=== PATIENT | male | born 1980 | race Caucasian/White ===

== ENCOUNTER → 2016-12-16 | Outpatient (CLI) | payer BC ==
[~2016-12-16] MED LIST: AMOXICILLIN 50500 MG PO; ANTIVERT 25MG25 MG PO; ATIVAN 0.50.5 MG/TAB PO; BUSPAR10 MG PO; CILOXAN .3% EY2.5 ML OD; FLONASE NASAL S16 GM NS; KLONOPIN 0.5MG0.5 MG PO; LEVAQUIN 5500 MG/TA1 PO; NORCO 325 MG-7.1 TAB PO; PAXIL40 MG PO; PREDNISONE20 MG PO; PRINZIDE 12.5 M1 TA1 PO; VENTOLIN0.09 MG IH; ZESTRIL 20MG TA20 MG PO
== END ==
LOC: COL.RAD 07:23
DX: R16.0 Hepatomegaly, not elsewhere classified (principal); K76.0 Fatty (change of) liver, not elsewhere classified; Z90.49 Acquired absence of other specified parts of digestive tract

== ENCOUNTER → 2019-05-13 | Outpatient (CLI) | payer BC | LOC: COL.RAD 13:26 | DX: N50.811 Right testicular pain (principal) ==

== ENCOUNTER 2021-06-21 13:44 | Outpatient (CLI) | payer BC ==
[~2021-06-21] VITALS: Ht 170.2 cm; Wt 159.0 kg
[2021-06-21 13:40] VITALS: BP 124/69; PULSE 72; TEMP 98.8
[~2021-06-21 13:44] MED LIST changes: +PAXIL 20MG20 MG PO; -PAXIL40 MG PO
[2021-06-21 14:12] VITALS: BP 124/68; PULSE 68
[2021-06-21 14:41] VITALS: BP 122/60; PULSE 73
[2021-06-21 14:55] VITALS: BP 121/69; PULSE 68
[2021-06-21 15:10] VITALS: BP 117/65; PULSE 71
[2021-06-21 15:20] VITALS: BP 122/65; PULSE 71; TEMP 98.8
[2021-06-21] MEDS ORDERED: BUSPAR DIVIDOSE15 MG PO (16:04)
[2021-06-21] MEDS ORDERED: LIPITOR 40MG TA40 MG PO (16:05)
[2021-06-21] MEDS ORDERED: TRULICITY0.75 MG/0. SQ (16:05)
[2021-06-21] MEDS ORDERED: CARTIA XT180 MG PO (16:06)
[2021-06-21] MEDS ORDERED: PROAIR HFA0.09 MG/AC IH (16:06)
== END 2021-06-21 15:30 | disposition home or self-care (01) ==
LOC: EUO 13:44
DX: U07.1 COVID-19 (principal)
CPT/HCPCS: M0245